=== PATIENT | male | born 1960 | race Caucasian/White ===

== ENCOUNTER 2017-05-05 10:42 | Emergency (ER) | payer SELFPAY ==
[2017-05-05 10:56] VITALS: TEMP 97.9; BMI 26.4
[2017-05-05] MEDS ORDERED: LABETALOL HCL 5 MG/1 ML (100MG/20 ML VIAL) IVPUSH ONE ×4 (11:04→11:42)
[2017-05-05] MEDS ORDERED: HEMOQUE TEST 1 EACH EACH ONE (11:05)
[2017-05-05 11:09] LABS: BASOPHIL 0.2 % (0-2.0); EOSINOPHIL 1.3 % (0-4.5); MCH 28.5 pg (25.7-33.7); MCHC 33.7 g/dl (32.0-35.9); MEAN CELL VOLUME 84.4 fl (80-96); MEAN PLT VOLUME 7.8 fl (7.5-11.1); PLATELET COUNT 247 K/MM3 (134-434); RDW 13.6 % (11.9-15.9); WHITE BLOOD COUNT 7.9 K/mm3 (4.0-10.8)
[2017-05-05] MEDS ORDERED: LABETALOL HCL 5 MG/1 ML (100MG/20 ML VIAL) ONE (11:09)
[2017-05-05] MEDS ORDERED: morphine CARPU-JECT 4 MG/1 ML DISP.SYRIN IVPUSH ONE ×3 (11:14→12:35)
[2017-05-05 11:17] LABS: INR 1.02 (0.82-1.09); PROTHROMBIN TIME (PATIENT) 11.4 SEC (10.2-13.0)
[2017-05-05] MEDS ORDERED: ASPIRIN 81 MG CHEWABLE TABLETS ONE (11:17)
[2017-05-05] MEDS ORDERED: morphine SULFATE 4 MG/ML VIAL ONE ×3 (11:19→12:46)
[2017-05-05 11:24] LABS: ALBUMIN 4.5 g/dl (3.5-5.0); ALK PHOS 113 U/L (32-92); ANION GAP 9 (8-16); BILIRUBIN,TOTAL 0.8 mg/dl (0.2-1.0); CALCIUM 9.7 mg/dl (8.4-10.2); CO2 25 mmol/L (22-28); CPK 38 IU/L (39-308); CREATININE 0.8 mg/dl (0.6-1.3); SGOT/AST 20 U/L (10-42); SGPT/ALT 19 U/L (10-40); TOT PROT 7.7 g/dl (6.4-8.3)
[2017-05-05] MEDS ORDERED: ASPIRIN COATED 81 MG TABLET.EC PO ONE (11:35)
[2017-05-05 11:40] LABS: GLUCOSE,RANDOM 307 mg/dl (74-106)
[2017-05-05 11:41] LABS: TROPONIN I (DFP) < 0.03 ng/ml (0.03-0.50)
--- NOTE | 2017-05-05 11:42 | PDOC ---
History of Present Illness - General Chief Complaint: Pain, Acute Stated Complaint: chest pain Time Seen by Provider: 05/05/17 10:56 Past History - Past Medical History Allergies/Adverse Reactions: Allergies Allergy/AdvReac Type Severity Reaction Status Date / Time acetaminophen [From Percocet] Allergy Unknown Verified 05/05/17 10:53 ketorolac tromethamine Allergy Unknown Verified 05/05/17 10:53 [From Toradol] nitroglycerin Allergy Unknown Verified 05/05/17 10:53 oxycodone HCl [From Percocet] Allergy Unknown Verified 05/05/17 10:53 Home Medications: Ambulatory Orders Aspirin [ASA -] 81 mg PO DAILY 05/05/17 Atorvastatin Ca [Lipitor] 40 mg PO HS 05/05/17 Metoprolol Tartrate [Lopressor] 50 mg PO DAILY 05/05/17 Rivaroxaban [Xarelto -] 20 mg PO DAILY 05/05/17 Sitagliptin Phos/Metformin HCl [Janumet 50-1,000 mg Tablet] 1 each PO BID Anemia: No Asthma: No Cancer: No Cardiac Disorders: Yes (NE X 3 STeNTS, dvt, pe) CVA: No COPD: No CHF: No DVT: Yes Dementia: No Diabetes: Yes GI Disorders: No Disorders: No HTN: Yes Hypercholesterolemia: No Kidney Stones: Yes Liver Disease: No Seizures: No Thyroid Disease: No - Surgical History Abdominal Surgery: No Appendectomy: No Cardiac Surgery: Yes (stents/ivc) Cholecystectomy: No Lung Surgery: No Neurologic Surgery: No Orthopedic Surgery: No - Immunization History Immunization Up to Date: Yes - Suicide/Smoking/Psychosocial Hx Smoking Status: No Smoking History: Never smoked Years of Tobacco Use: 0 Have you smoked in the past 12 months: No Number of Cigarettes Smoked Daily: 0 Hx Alcohol Use: No Drug/Substance Use Hx: No Substance Use Type: None Hx Substance Use Treatment: No Respiratory Specific PMHX - Complaint Specific PMHX Angina: No Bronchitis: No Pneumonia: No Pulmonary Embolus: Yes *Physical Exam - Vital Signs Last Vital Signs Temp Pulse Resp BP Pulse Ox 97.9 F 99 H 25 H 180/135 100 05/05/17 10:42 05/05/17 11:32 05/05/17 11:32 05/05/17 11:32 05/05/17 11:25 ED Treatment Course - LABORATORY CBC & Chemistry Diagram: 05/05/17 11:02 05/05/17 11:02 - ADDITIONAL ORDERS Additional order review: Laboratory Results 05/05/17 05/05/17 05/05/17 11:08 11:02 10:59 PT with INR 11.4 INR 1.02 Sodium 134 L Potassium 3.6 Chloride 100 Carbon Dioxide 25 Anion Gap 9 BUN 13 D Creatinine 0.8 Creat Clearance w eGFR > 60 POC Glucometer [phone] Random Glucose 307 H* Calcium 9.7 Total Bilirubin 0.8 AST 20 ALT 19 D Alkaline Phosphatase 113 H Creatine Kinase 38 L Total Protein 7.7 Albumin 4.5 05/05/17 05/05/17 11:08 11:02 RBC 5.97 H MCV 84.4 MCHC 33.7 RDW 13.6 MPV 7.8 Neutrophils % 69.0 Lymphocytes % 21.3 Monocytes % 8.2 Eosinophils % 1.3 Basophils % 0.2 POC Glucometer [phone] - RADIOLOGY Radiology Studies Ordered: Category Date Time Status CHEST X-RAY PORTABLE* [RAD] Stat Radiology 05/05/17 10:57 Completed - Medications Given in the ED: ED Medications Discontinued Medications Generic Name Dose Route Start Last Admin Trade Name Freq PRN Reason Stop Dose Admin Aspirin 162 mg 05/05/17 11:35 05/05/17 11:36 Ecotrin - PO 05/05/17 11:36 162 mg ONCE ONE Administration Labetalol HCl 20 mg 05/05/17 11:04 05/05/17 11:14 Normodyne Injection - IVPUSH 05/05/17 11:05 20 mg ONCE ONE Administration Labetalol HCl 20 mg 05/05/17 11:26 05/05/17 11:34 Normodyne Injection - IVPUSH 05/05/17 11:27 20 mg ONCE ONE Administration Morphine Sulfate 4 mg 05/05/17 11:14 05/05/17 11:25 Morphine Injection - IVPUSH 05/05/17 11:15 4 mg ONCE ONE Administration
[2017-05-05] MEDS ORDERED: ONDANSETRON 4 MG/2 ML VIAL IVPB ONE (11:45)
--- NOTE | 2017-05-05 11:50 | PDOC ---
Attending Attestation - Resident Resident Name: JulietaemoryDarrin - ED Attending Attestation I have performed the following: I have examined & evaluated the patient, The case was reviewed & discussed with the resident, I agree w/resident's findings & plan, Exceptions are as noted - HPI HPI: 05/05/17 11:50 Sudden onset of pleuritic substernal chest pain this morning. At rest. No recent fever or cough. Pain radiates to the back. Similar symptoms in the past with a history of multiple pulmonary emboli. Also has coronary artery disease, stents, and pacemaker. Blood pressure is severely elevated. O2 saturation 100%, however, on room air. - Physicial Exam PE: 05/05/17 11:52 Patient is alert and oriented but tachypneic and dyspneic despite O2 saturation 100% on room air Blood pressure in the 200/150 range. Heart rate 130. Respiratory rate 28 and labored. Oxygen saturation 100% as noted. Lung exam shows clear breath sounds on the left, decreased breath sounds on the right, but no definite dullness or hyperresonance. Cardiovascular exam, except for tachycardia, regular, is normal pulses are full and symmetric - Critical Care Time Total Critical Care Time: 60 Critical Care Statement: The care of this patient involved high complexity decision making to prevent further life threatening deterioration of the patient 's condition and/or to evaluate & treat vital organ system(s) failure or risk of failure. - Medical Decision Making 05/05/17 11:55 Assessment is a patient with coronary artery disease, stent, pacemaker, and multiple pulmonary emboli in the past by history. Has been noncompliant with medications including aspirin and several toe, as well as nonspecified blood pressure preparation. Plan: EKG and enzymes, d-dimer, BNP, CTA, and further treatment depending on results. Lower blood pressure and control pain. The patient is refusing CAT scan. Patient's and patient requesting Dilaudid for the pain. This has apparently happened on prior admission with the patient has refused testing and signed out AGAINST MEDICAL ADVICE when his requests for pain killers were not completely met. 2 doses of morphine were administered but the patient is apparently not satisfied. Attempts to reason with the patient will met with hostility patient and his . 05/05/17 14:12 Much improved both clinically and hemodynamically. Heart rate is 88 and regular. Blood pressure 140/90. Respiratory rate 16 and unlabored. Oxygen saturation 100% on room air. He appears very comfortable and in no distress respiratory or otherwise. He continues to refuse CT scan because he feels he cannot lie still for a sufficient period of time for the examination. 4 hour repeat troponin is pending. There is no evidence of pulmonary embolus, acute coronary syndrome, or pneumonia. There are no signs of dissecting aneurysm, though this cannot be completely excluded without chest CT. The patient is now insisting on leaving AMA. He refuses to undergo second troponin or chest CTA. He is clinically and hemodynamically stable, however, medical evaluation is not complete. He and his were spoken to at length regarding the advisability of further evaluation but he insists upon leaving immediately. Fully ambulatory and in no significant pain or other distress upon discharge, was stable vital signs, strongly advised to take his medication as directed and to comply with his doctor's recommendations, especially for blood pressure control.
[2017-05-05] MEDS ORDERED: ONDANSETRON 4 MG/2 ML VIAL ONE (12:00)
--- NOTE | 2017-05-05 12:06 | PDOC ---
History of Present Illness - General Chief Complaint: Pain, Acute Stated Complaint: chest pain Time Seen by Provider: 05/05/17 10:56 - History of Present Illness Initial Comments: 05/05/17 11:55 The patient is a 56 yo m w/ PMH CAD, DM, HTN, afib, recurrent pulmonary embolism s/p IVC filter and ac who comes into the ED c/o dull, substernal chest pain and shortness of breath for the past 1 hour. Patient states that he had a sudden onset of substernal chest pain which was dull and radiated to his back. The pain was 9/10 in intensity and had no exacerbating or relieving factors. Patient associates SOB and left arm tingling with this pain. Just prior to arriving in the ED, the patient endorses an episode of syncope. The episode was witnessed by his , who denies and shaking, tongue biting or incontinence. The patient denies any abdominal pain, palpitations, fever, chills. 05/05/17 12:09 Past History - Past Medical History Allergies/Adverse Reactions: Allergies Allergy/AdvReac Type Severity Reaction Status Date / Time acetaminophen [From Percocet] Allergy Unknown Verified 05/05/17 10:53 ketorolac tromethamine Allergy Unknown Verified 05/05/17 10:53 [From Toradol] nitroglycerin Allergy Unknown Verified 05/05/17 10:53 oxycodone HCl [From Percocet] Allergy Unknown Verified 05/05/17 10:53 Home Medications: Ambulatory Orders Aspirin [ASA -] 81 mg PO DAILY 05/05/17 Atorvastatin Ca [Lipitor] 40 mg PO HS 05/05/17 Metoprolol Tartrate [Lopressor] 50 mg PO DAILY 05/05/17 Rivaroxaban [Xarelto -] 20 mg PO DAILY 05/05/17 Sitagliptin Phos/Metformin HCl [Janumet 50-1,000 mg Tablet] 1 each PO BID Anemia: No Asthma: No Cancer: No Cardiac Disorders: Yes ([place] X 3 STeNTS, dvt, pe) CVA: No COPD: No CHF: No DVT: Yes Dementia: No Diabetes: Yes GI Disorders: No Disorders: No HTN: Yes Hypercholesterolemia: No Kidney Stones: Yes Liver Disease: No Seizures: No Thyroid Disease: No - Surgical History Abdominal Surgery: No Appendectomy: No Cardiac Surgery: Yes (stents/ivc) Cholecystectomy: No Lung Surgery: No Neurologic Surgery: No Orthopedic Surgery: No - Immunization History Immunization Up to Date: Yes - Suicide/Smoking/Psychosocial Hx Smoking Status: No Smoking History: Never smoked Years of Tobacco Use: 0 Have you smoked in the past 12 months: No Number of Cigarettes Smoked Daily: 0 Hx Alcohol Use: No Drug/Substance Use Hx: No Substance Use Type: None Hx Substance Use Treatment: No Review of Systems - Review of Systems Constitutional: No: Chills, Fever, Malaise, Weakness Respiratory: Yes: Shortness of Breath, SOB with Exertion. No: Cough Cardiac (ROS): Yes: Chest Pain. No: Edema, Lightheadedness ABD/GI: No: Abdominal Distended, Diarrhea, Nausea, Vomiting Musculoskeletal: Yes: Back Pain Neurological: Yes: Tingling (in left arm associated with pain). No: Headache, Numbness, Seizure *Physical Exam - Vital Signs Last Vital Signs Temp Pulse Resp BP Pulse Ox 97.9 F 98 H 26 H 175/125 100 05/05/17 10:42 05/05/17 11:37 05/05/17 11:37 05/05/17 11:37 05/05/17 11:37 - Physical Exam General Appearance: Yes: Appropriately Dressed, Severe Distress HEENT: positive: EOMI, RICHARD, Normal ENT Inspection. negative: Scleral Icterus ( R), Scleral Icterus (L) Neck: positive: Trachea midline. negative: Tender Respiratory/Chest: positive: Labored Respiration, Other (decreased breath sounds on the right. mild inspiratory crackles heard on left). negative: Chest Tender Cardiovascular: positive: Regular Rhythm, S1, S2, Tachycardia. negative: Edema , JVD, Murmur, Gallop/S3, Gallop/S4 Gastrointestinal/Abdominal: positive: Normal Bowel Sounds, Flat, Soft. 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 NML intact, Fully Oriented, Alert, Normal Mood/ Affect, Normal Response, Motor Strength 5/5 Heart Score/ECG Review - History History: Moderately suspicious - Age Age: 45-65 - Risk Factors Risk Factors Heart Score: Yes Hx Hypercholesterolemia, Yes Hx Hypertension, Yes Hx Diabetes Based on the list above the patient has:: 1-2 risk factors - Troponin Troponin: </= normal limit ED Treatment Course - LABORATORY CBC & Chemistry Diagram: 05/05/17 11:02 05/05/17 11:02 - ADDITIONAL ORDERS Additional order review: Laboratory Results 05/05/17 05/05/17 05/05/17 11:08 11:02 10:59 PT with INR 11.4 INR 1.02 Sodium 134 L Potassium 3.6 Chloride 100 Carbon Dioxide 25 Anion Gap 9 BUN 13 D Creatinine 0.8 Creat Clearance w eGFR > 60 POC Glucometer [phone] Random Glucose 307 H* Calcium 9.7 Total Bilirubin 0.8 AST 20 ALT 19 D Alkaline Phosphatase 113 H Creatine Kinase 38 L Troponin I < 0.03 L Total Protein 7.7 Albumin 4.5 05/05/17 05/05/17 11:08 11:02 RBC 5.97 H MCV 84.4 MCHC 33.7 RDW 13.6 MPV 7.8 Neutrophils % 69.0 Lymphocytes % 21.3 Monocytes % 8.2 Eosinophils % 1.3 Basophils % 0.2 POC Glucometer [phone] - Medications Given in the ED: ED Medications Discontinued Medications Generic Name Dose Route Start Last Admin Trade Name Greg PRN Reason Stop Dose Admin Aspirin 162 mg 05/05/17 11:35 05/05/17 11:36 Ecotrin - PO 05/05/17 11:36 162 mg ONCE ONE Administration Labetalol HCl 20 mg 05/05/17 11:04 05/05/17 11:14 Normodyne Injection - IVPUSH 05/05/17 11:05 20 mg ONCE ONE Administration Labetalol HCl 20 mg 05/05/17 11:26 05/05/17 11:34 Normodyne Injection - IVPUSH 05/05/17 11:27 20 mg ONCE ONE Administration Labetalol HCl 20 mg 05/05/17 11:41 05/05/17 11:45 Normodyne Injection - IVPUSH 05/05/17 11:42 20 mg ONCE ONE Administration Morphine Sulfate 4 mg 05/05/17 11:14 05/05/17 11:25 Morphine Injection - IVPUSH 05/05/17 11:15 4 mg ONCE ONE Administration Medical Decision Making - Medical Decision Making 05/05/17 12:31 The patient is a 56 yo m w/ PMH HTN, DM, afib, recurrent blood clots and Pulmonary embolisms comes into the ED c/o a 1 hour history of substernal chest pain radiating to the back as well as shortness of breath and left arm tingling. This presentation is concerning for a possible cardiac event versus a respiratory etiology, including another PE. The patient has had several previous ED visits at the [facility], however, where he was documenting as displaying drug seeking behavior. On arrival, the Patient's BP was elevated to 210/143 and his heart rate was 131. Saturation 100% on room air. The auscultation of decreased breath sounds over the right is a concerning finding and must be investigated. -EKG -CBC, CMP -cardiac enzymes -d-dimer -BNP -CXR -ASA 162mg -Morphine 4mg -labetolol 20mg -CTA 05/05/17 13:10 -BP still elevated; will administer another 20 mg labetolol -EKG difficult to interpret secondary to artifact. -Patient refusing CTA at this time. 05/05/17 13:16 -Patient's heart rate lowered to 89 and bp is 146/90 at this time after second labetolol dose. -CBC, CMP unremarkble -D-dimer negative; making a blood clot unlikely -BNP WNL -cardiac enzymes negative; will trend at 3pm -CXR negative for acute processes, pneumothorax. -CXR does not show evidence of widened mediastinum. This coupled with a normal to elevated blood pressure and a normal heart rate makes aortic dissection less likely. -will administer another 4mg morphine for pain control 05/05/17 13:38 -another 4mg morphine administered for pain control. -Patient continues to refuse CTA despite he and his 's continued concern for PE. He states that he cannot tolerate the test as he cannot lay flat because of chronic back pain. -explained to the patient the importance of obtaining CTA given the patient' s history and current vital signs -Patient's requesting 2mg dilaudid and 50 mg benadryl for the patient, stating that this is what worked for him in the past when he required CTA. -Patient states that he will not undergo CT without receiving the requested pain medications. 05/05/17 14:03 -Patient continues to refuse CT despite emphasis on the importance of the diagnosis test -repeat EKG unchanged from previous tests. 05/05/17 14:33 -Patient expressed wishes to leave the department; IV's were removed and patient refused to sign out AMA. -patient walked out of the Emergency room of his own accord. *DC/Admit/Observation/Transfer Diagnosis at time of Disposition: Eloped - Discharge Dispostion Disposition: ELOPED - Referrals - Patient Instructions - Post Discharge Activity
[2017-05-05 12:56] VITALS: BP 143/93; PULSE 86
[2017-05-06] MEDS ORDERED: ASPIRIN COATED 81 MG TABLET.EC PO ONE (11:05)
--- NOTE | 2017-05-07 16:45 | EKG ---
Test Reason : Blood Pressure : / mmHG Vent. Rate : 091 BPM Atrial Rate : 091 BPM P-R Int : 158 ms QRS Dur : 078 ms QT Int : 374 ms P-R-T Axes : 079 071 055 degrees QTc Int : 460 ms POOR DATA QUALITY, INTERPRETATION MAY BE ADVERSELY AFFECTED NORMAL SINUS RHYTHM WHEN COMPARED WITH ECG OF 05-MAY-2017 10:50, NO SIGNIFICANT CHANGE WAS FOUND please reepat for better baseline Confirmed by MD PEREZ MARJORY ([id number]) on 05/07/2017 4:45:12 PM Referred By: Confirmed By:DELMI PEREZ MD
--- NOTE | 2017-05-07 16:45 | EKG ---
Test Reason : Blood Pressure : / mmHG Vent. Rate : 135 BPM Atrial Rate : 135 BPM P-R Int : 136 ms QRS Dur : 078 ms QT Int : 298 ms P-R-T Axes : 046 081 063 degrees QTc Int : 447 ms POOR DATA QUALITY, INTERPRETATION MAY BE ADVERSELY AFFECTED SINUS TACHYCARDIA WHEN COMPARED WITH ECG OF 10-AUG-2013 16:35, please repeat for better baseline Confirmed by MD CHRIS, DELMI ([id number]) on 05/07/2017 4:45:42 PM Referred By: Confirmed By:DELMI PEREZ MD
== END 2017-05-05 15:04 | disposition left against medical advice (07) ==
LOC: FER 10:42
PROC: 3E033NZ Introduction of Analgesics, Hypnotics, Sedatives into Peripheral Vein, Percutaneous Approach (ICD-10-PCS; principal; 2017-05-05)
PROC: 3E033GC Introduction of Other Therapeutic Substance into Peripheral Vein, Percutaneous Approach (ICD-10-PCS; 2017-05-05)
DX: Z53.21 Procedure and treatment not carried out due to patient leaving prior to being seen by health care provider (principal)
CPT/HCPCS: 36415; 71010-TC; 80053; 82550; 83880; 84484; 85025; 85379; 85610; 93005; 99285-25